=== PATIENT | female | born 2005 | race Caucasian/White ===

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

== ENCOUNTER → 2023-06-04 | Outpatient (CLI) | payer OTHER ==
[~2023-06-04] MED LIST changes: +PREDNISONE50 MG PO
== END | disposition home or self-care (01) ==
LOC: RAD 13:45
PROVIDERS: ATTEND Family Medicine
DX: M41.86 Other forms of scoliosis, lumbar region (principal); M43.8X4 Other specified deforming dorsopathies, thoracic region

== ENCOUNTER 2023-09-14 14:37 | Emergency (ER) | payer OTHER ==
[~2023-09-14] VITALS: Ht 157.4 cm; Wt 72.6 kg
[2023-09-14 16:10] LABS: BASO % 0.2 % (0.0-1.0); EOS # 0.2 10*3/uL (0.0-0.4); EOS % 0.9 % (1.0-4.0); HEMATOCRIT 44.2 % (37.0-47.0); LYMPH # 1.1 10*3/uL (1.3-4.4); LYMPH % 5.8 % (27.0-41.0); MEAN CELL VOLUME 84.5 fl (81.0-99.0); MEAN CORPUSCULAR HGB 29.8 pg (27.0-31.0); MEAN CORPUSCULAR HGB CONC 35.3 g/dl (33.0-37.0); MEAN PLATELET VOLUME 10.4 fl (9.6-12.3); MONO # 1.2 10*3/uL (0.1-1.0); MONO % 6.2 % (3.0-9.0); NEUT # 16.3 10*3/uL (2.3-7.9); NEUT % 86.6 % (47.0-73.0); PLATELET COUNT AUTOMATED 202 10*3/uL (130-400); RED BLOOD COUNT 5.23 10*6/uL (4.10-5.10); RED CELL DISTRI WIDTH 11.8 % (0-14.5); WHITE BLOOD COUNT 18.8 10*3/uL (4.8-10.8)
[2023-09-14 16:42] LABS: ALKALINE PHOSPHATASE 64 U/L (46-116); CHLORIDE 108 mmol/L (98-107); POTASSIUM 3.9 mmol/L (3.4-5.1); TOTAL PROTEIN 7.9 gm/dL (6.0-8.0)
[2023-09-14 16:45] LABS: BUN < 5 mg/dl (9-23); SGPT/ALT < 7 U/L (5-49)
[2023-09-14] MEDS ORDERED: ALBUTEROL2.5 MG/0.5 INH (16:57)
[2023-09-14] MEDS ORDERED: PREDNISONE20 M1 PO (16:57)
[2023-09-14] MEDS ORDERED: AVPAK AZITHROM250 M1 PO (16:57)
== END 2023-09-14 17:48 | disposition home or self-care (01) ==
LOC: ED 14:37
PROVIDERS: Emergency Medicine
DX: J45.901 Unspecified asthma with (acute) exacerbation (principal); Z88.1 Allergy status to other antibiotic agents; Z79.899 Other long term (current) drug therapy

== ENCOUNTER 2025-08-02 07:49 | Emergency (ER) | payer SELFPAY ==
[~2025-08-02] VITALS: Ht 154.9 cm; Wt 72.6 kg
[~2025-08-02 07:49] MED LIST changes: +ALBUTEROL2.5 MG/0.5 INH; +AVPAK AZITHROM250 M1 PO; +PREDNISONE20 M1 PO
[2025-08-02] MEDS ORDERED: ALBUTEROL2.5 MG/0.5 INH (08:16)
== END 2025-08-02 08:35 | disposition home or self-care (01) ==
LOC: ED 07:49
DX: J40 Bronchitis, not specified as acute or chronic (principal); Z79.899 Other long term (current) drug therapy; Z88.1 Allergy status to other antibiotic agents; Z98.890 Other specified postprocedural states